=== PATIENT | female | born 1990 | race Hispanic/Latino ===

== ENCOUNTER 2017-12-31 18:00 | Observation (INO) | payer SELFPAY ==
[~2017-12-31] VITALS: Ht 157.5 cm; Wt 72.6 kg
[~2017-12-31 18:00] MED LIST: IRON18 MG PO; PRENATABS RX T1 EACH PO
[2017-12-31] MEDS ORDERED: SODIUM CHLORIDE 0.9% 1000ML 1,000 ML IV ONE (19:15)
[2017-12-31] MEDS ORDERED: SODIUM CHLORIDE 0.9% 1000ML 1,000 ML ONE (19:17)
[2017-12-31 19:23] LABS: BASOPHILS % 0.2 % (0.0-1.0); EOSINOPHILS % 0.1 % (0.0-6.0); HEMATOCRIT 35.1 % (34.2-44.1); HEMOGLOBIN 12.2 g/dL (12.0-16.0); LYMPHOCYTES # (AUTO) 1.8 (1.0-3.2); LYMPHOCYTES % 13.4 % (18.0-39.1); MEAN CORPUSCULAR HEMOGLOBIN 28.1 pg (28-32); MEAN CORPUSCULAR HGB CONC 34.8 g/dL (31-35); MEAN CORPUSCULAR VOLUME 80.9 fL (81-99); MONOCYTES # (AUTO) 0.9 (0.2-0.8); MONOCYTES % 6.4 % (4.4-11.3); NEUTROPHILS # (AUTO) 10.9 (2.1-6.9); NEUTROPHILS % 79.4 % (38.7-80.0); PLATELET COUNT 211 x10e3/uL (140-360); RED BLOOD COUNT 4.34 x10e6/uL (3.6-5.1); RED CELL DISTRIBUTION WIDTH 14.2 % (11.7-14.4)
[2017-12-31 19:35] LABS: ALANINE AMINOTRANSFERASE 21 IU/L (0-55); ALBUMIN 4.1 g/dL (3.5-5.0); ALBUMIN/GLOBULIN RATIO 1.5 (0.8-2.0); ALKALINE PHOSPHATASE 64 IU/L (40-150); ANION GAP 13.2 mmol/L (8-16); BLOOD UREA NITROGEN 9 mg/dL (7-26); BUN/CREATININE RATIO 11 (6-25); CALCIUM 9.3 mg/dL (8.4-10.2); CARBON DIOXIDE 21 mmol/L (22-29); CHLORIDE 110 mmol/L (98-107); CREATINE KINASE 513 IU/L (29-168); CREATININE, SERUM 0.85 mg/dL (0.57-1.11); EST GLOMERULAR FILTRATION RATE > 60 ML/MIN (60-); GLUCOSE 106 mg/dL (74-118); POTASSIUM 3.2 mmol/L (3.5-5.1); SODIUM 141 mmol/L (136-145)
[2017-12-31 19:57] LABS: FREE THYROXINE INDEX 2.1281 (1.4-3.8); THYROID STIMULATING HORMONE 0.616 uIU/mL (0.350-4.940)
[2017-12-31] MEDS ORDERED: ASPIRIN 81 MG CHEW TAB PO ONE ×3 (20:30→23:30)
[2017-12-31 20:47] LABS: BILIRUBIN,URINE NEGATIVE (NEGATIVE); CLARITY,URINE CLEAR (CLEAR); COLOR,URINE YELLOW (YELLOW); KETONES,URINE 1+ (NEGATIVE); LEUKOCYTE ESTERASE ,URINE NEGATIVE (NEGATIVE); NITRITE,URINE NEGATIVE (NEGATIVE); PROTEIN,URINE DIPSTICK NEGATIVE (NEGATIVE); URINE UROBILINOGEN 0.2 mg/dL (0.2 - 1)
[2017-12-31 21:06] LABS: BACTERIA,URINE MODERATE /HPF; EPITHELIAL CELLS,URINE MODERATE /LPF
--- NOTE | 2017-12-31 21:25 | Diagnostic Imaging Report ---
CHEST SINGLE (PORTABLE), 12/31/2017 7:15 PM Technique: CHEST SINGLE (PORTABLE) Comparison: None available. Clinical history: Syncope Findings: Unremarkable appearance of the heart, mediastinum, lungs and pleural spaces. Impression: 1. Lines/Tubes: None 2. No acute abnormality. Signed by: Dr Iman Orta MD on 12/31/2017 9:21 PM
--- NOTE | 2017-12-31 21:26 | Diagnostic Imaging Report ---
History: Syncope Comparison studies: None Technique: Axial images were obtained from the skull base to the vertex. Coronal and sagittal reconstructions obtained from the axial data. Findings: Scalp/skull: No abnormalities. No fractures, blastic or lytic lesions. Extra-axial spaces: No masses. No fluid collections. Brain sulci: Appropriate for age. Ventricles: Normal in size and configuration. No hydrocephalus. Parenchyma: No abnormal densities. No masses, hemorrhage, acute or chronic cortical vascular insults. Sellar/suprasellar region: No abnormalities Craniocervical junction: Patent foramen magnum. No Chiari one malformation. IMPRESSION: No abnormalities. Signed by: Dr. Jamaal Torres M.D. on 12/31/2017 9:22 PM
[2017-12-31] MEDS ORDERED: SODIUM CHLORIDE 0.9% 1000ML 1,000 ML IV SCH (23:30)
--- OUTSIDE RECORDS SUMMARY | 2017-12-31 23:34 | XMS REPORT ---
[facility] Address Unknown Phone Unavailable Care Team Providers Care Silk Snapper Name Role Phone MYRIAM MCNALLY Unavailable Unavailable Problems This patient has no known problems. Allergies, Adverse Reactions, Alerts This patient has no known allergies or adverse reactions. Medications This patient has no known medications. Results Test Description Test Time Test Comments Text Results Atomic Results Result Comments CHEST SINGLE (PORTABLE) [place] [address] Patient Name: MONA YOUNGER MR #: [id number] : 1990 Age/Sex: 27/F Req #: [id number] Adm Physician: Ordered by: ZEINAB WALLS MD Report #: [id number] Location: ER Room/Bed: ___ Procedure: [id number] DX/CHEST SINGLE (PORTABLE) Exam Date: 12/31/17 Exam Time: 2038 REPORT STATUS: Signed CHEST SINGLE (PORTABLE), 12/31/2017 7:15 PM Technique: CHEST SINGLE (PORTABLE) Comparison: None available. Clinical history: Syncope Findings: Unremarkable appearance of the heart, mediastinum, lungs and pleural spaces. Impression: 1. Lines/Tubes: None 2. No acute abnormality. Signed by : Dr Yodit Orta MD on 12/31/2017 9:21 PM Dictated By: YODIT ORTA MD 20 Transcribed By: ROSEMARY on 12/31/172120 COPY TO: ZEINAB WALLS MD CT BRAIN WO [place] [address] Patient Name: MONA YOUNGER MR #: [id number] : 1990 Age/Sex: 27/F Req # : [id number] Adm Physician: Ordered by: ZEINAB WALLS MD Report # : [id number] Location: ER Room/Bed: Procedure: [id number] CT/CT BRAIN WO Exam Date: Exam Time: REPORT STATUS: Signed History: Syncope Comparison studies: None Technique: Axial images were obtained from the skull base to the vertex. Coronal and sagittal reconstructions obtained from the axial data. Findings : Scalp/skull: No abnormalities. No fractures, blastic or lytic lesions. Extra-axial spaces: No masses. No fluid collections. Brain sulci: Appropriate for age. Ventricles: Normal in size and configuration. No hydrocephalus. Parenchyma: No abnormal densities. No masses, hemorrhage, acute or chronic cortical vascular insults. Sellar/ suprasellar region: No abnormalities Craniocervical junction: Patent foramen magnum. No Chiari one malformation. IMPRESSION: No abnormalities. Signed by: Dr. Jamaal Torres M.D. on 12/31/2017 9:22 PM Dictated By: JAMAAL TORRES MD, MD 21 Transcribed By: ROSEMARY on 12/31/172121 COPY TO: ZEINAB WALLS MD
[2017-12-31] MEDS: SODIUM CHLORIDE 0.9% 1000ML 1,000 ML IV SCH (23:36)
--- NOTE | 2018-01-01 00:32 | Consultation ---
DATE OF CONSULTATION: December 31, 2017 REASON FOR CONSULTATION: Syncope and elevated cardiac enzymes. HISTORY OF PRESENT ILLNESS: Ms. 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 She had intense physical training today including being in the sun for several hours. She tried to keep hydrated, but she felt dizzy during her training sessions. Following which, she was taken home by her and had 3 episodes of jimmy syncope. All while she was feeling the syncope was brief. She had no trauma, no seizures, no chest pain. She did describe some palpitations during the day. Her recorded heart rate was 120 beats a minute. PAST MEDICAL HISTORY: None. SOCIAL HISTORY: Patient does not smoke or drink. DRUG ALLERGIES: PENICILLIN. REVIEW OF SYSTEMS: Negative except as dictated in the history of present illness. PHYSICAL EXAMINATION VITALS: Afebrile. Heart rate 70. Blood pressure 120/77. O2 sat 100%. LUNGS: Clear to auscultation bilaterally. CARDIOVASCULAR: Regular rhythm. No murmurs or gallops. ABDOMEN: Soft. Bowel sounds adequate. EXTREMITIES: Pedal pulses are 2+. No carotid bruit. LAB: Potassium is 3.2, creatinine is 0.8. CK 5.3, CK-MB 8.1, troponin 0.5. TSH is normal. test is normal. Hemoglobin is normal. Chest x-ray, brain CT are normal. Echocardiogram is normal. ASSESSMENT: Heat exhaustion. RECOMMENDATIONS: Ms Goldsmith has trivial troponin and CPK elevation is probably related to her intense physical activity today along with dehydration and heat exhaustion. She should receive liberal intravenous fluids. Recheck cardiac enzymes to predict trend of same. If cardiac enzymes normal; hence, no further workup is needed. Her syncope is most likely vasovagal and related to dehydration, and intense physical exercise. Restrictions were discussed with the patient, as well as her . We will continue to follow closely. I thank, Dr. Burt, for this consultation. Job#: [id number]
[2018-01-01 03:47] LABS: CREATINE KINASE MB 21.5 ng/mL (0-5.0)
[2018-01-01] MEDS ORDERED: POTASSIUM CHLORIDE 20 MEQ TAB CR PO STA (04:27)
[2018-01-01] MEDS: SODIUM CHLORIDE 0.9% 1000ML 1,000 ML IV SCH ×4 (07:14→22:31)
--- NOTE | 2018-01-01 08:50 | History and Physical ---
PRIMARY CARE PHYSICIAN: None. CHIEF COMPLAINT: Syncope. HISTORY OF PRESENT ILLNESS: This is a 27-year-old woman with no significant medical issue, now having a syncopal episode at home. was called. When the ambulance arrived, the patient had another syncopal episode. The only symptom prior to the syncopal episode was some blurred vision, dizziness, and ringing in the ears. No chest pain. Currently, the patient is symptom-free and feels better. Has not had a syncopal episode in the past. She did have diarrhea after a syncopal episode occurred. PAST MEDICAL HISTORY: None. PAST SURGICAL HISTORY: None. ALLERGIES: PER ELECTRONIC MEDICAL RECORD. FAMILY HISTORY/SOCIAL HISTORY: The patient is . She has 3 children. Occasional alcohol. No cigarettes or illicits. MEDICATIONS: Per electronic medical record. REVIEW OF SYSTEMS: Denies any dizziness or chest pain. PHYSICAL EXAMINATION VITAL SIGNS: Have been reviewed. GENERAL: A tired-appearing woman resting in bed. HEENT: Anicteric. Pupils are responsive to light. No oral lesions. CARDIOVASCULAR: Normal S1 and S2. LUNGS: Moderate breath sounds. ABDOMEN: Soft, nontender, nondistended. EXTREMITIES: No edema or calf tenderness. NEUROLOGIC: Alert and oriented times 3, moving all extremities. SKIN: Dry. PSYCHIATRIC: Normal affect. LABS: Reviewed. MEDICATIONS: Reviewed. ASSESSMENT AND PLAN: This is a 27-year-old woman. 1. Syncope. EKG appears normal. Echocardiogram shows normal left ventricular ejection fraction. There are mild MR and TR. Cardiology has been consulted. Will continue aspirin 81 mg. Will obtain a lipid panel. Thyroid function is normal. CT scan of the brain was negative. 2. Acute rhabdomyolysis. Creatine kinase was 1500. Will rehydrate the patient. 3. Hypokalemia. Replace and recheck. Will also obtain a magnesium level and phosphorus level. 4. Metabolic acidosis. Will rehydrate. 5. Leukocytosis. Unclear etiology. Could just be marginalization. Urinalysis does show bacteria, but leukocyte esterase and nitrite are both negative. However, the patient did have a syncopal episode. We will treat it as symptomatic urinary tract infection. We will treat it with IV ceftriaxone and obtain cultures. The patient is allergic to penicillin. Therefore, we will use Levaquin. 6. Prophylaxis: Will use Lovenox and Pepcid. 7. Disposition: Monitor closely via telemetry. Job#: [id number] MH
[2018-01-01] MEDS: LEVOFLOXACIN 500MG/D5W 100ML 100 ML IV SCH (09:25)
[2018-01-01] MEDS: ASPIRIN 81 MG ENTERIC COATED PO SCH (09:25)
[2018-01-01] MEDS: FAMOTIDINE 20 MG/2 ML VIAL IV SCH ×2 (09:25→17:21)
[2018-01-01 09:55] LABS: CREATINE KINASE MB 19.4 ng/mL (0-5.0)
[2018-01-01 10:01] LABS: MAGNESIUM 1.7 MG/DL (1.3-2.1); PHOSPHORUS 2.4 MG/DL (2.3-4.7); POTASSIUM 3.7 mmol/L (3.5-5.1)
[2018-01-01 10:12] LABS: CHOL/HDL RATIO 3.5 (3.0-3.6)
[2018-01-01] MEDS ORDERED: MECLIZINE HCL 12.5 MG TAB PO PRN (11:00)
[2018-01-01] MEDS ORDERED: ACETAMINOPHEN 325 MG TAB PO PRN (12:45)
[2018-01-01 13:02] VITALS: BP 107/63
--- NOTE | 2018-01-01 13:17 | Progress Note ---
DATE: January 01, 2018 CARDIOLOGY PROGRESS NOTE SUBJECTIVE: Patient denies chest pain or shortness of breath. However, she reports she continues to have episodes of dizziness with moving her head or sitting up. OBJECTIVE VITAL SIGNS: Temperature 98.8 degrees, pulse 60, respiratory rate 20, blood pressure 110/73, oxygen saturation 99% on room air. GENERAL: Awake, alert, in no acute distress. LUNGS: Clear to auscultation bilaterally. No wheezes or crackles. CARDIOVASCULAR: Normal rate, regular rhythm. No murmur. Normal S1 and S2. ABDOMEN: Soft, nontender. EXTREMITIES: No edema. CARDIAC MEDICATIONS 1. Aspirin 81 mg p.o. daily. 2. Enoxaparin 40 mg subcutaneous daily. LABS: CK 1436, CK-MB 19.4, troponin 0.09. TELEMETRY: Normal sinus rhythm. IMPRESSION 1. Syncope. 2. Rhabdomyolysis. 3. Abnormal urinalysis. RECOMMENDATIONS: Continue IV fluids for rhabdomyolysis. Troponin elevation not consistent with myocardial infarction, likely related to intense physical activity and heat exhaustion yesterday. Syncope was likely due to dehydration. Echocardiogram was normal. Thank you for this consult. We will continue to follow. Job#: [id number] EV
[2018-01-01 13:24] VITALS: BP 107/63
[2018-01-01 15:27] VITALS: BP 128/71
[2018-01-01] MEDS ORDERED: ENOXAPARIN SOD INJ 40 MG/0.4 ML SYR SC SCH (17:00)
[2018-01-01 18:59] LABS: CREATINE KINASE MB 13.7 ng/mL (0-5.0)
[2018-01-01 20:00] VITALS: BP 112/56
[2018-01-02] VITALS: BP 102/56
[2018-01-02 04:00] VITALS: BP 107/61
[2018-01-02] MEDS: SODIUM CHLORIDE 0.9% 1000ML 1,000 ML IV SCH ×2 (04:29→10:23)
[2018-01-02 06:45] LABS: BASOPHILS % 0.8 % (0.0-1.0); EOSINOPHILS # (AUTO) 0.2 (0.0-0.4); EOSINOPHILS % 3.7 % (0.0-6.0); HEMATOCRIT 32.2 % (34.2-44.1); HEMOGLOBIN 10.4 g/dL (12.0-16.0); LYMPHOCYTES # (AUTO) 2.4 (1.0-3.2); LYMPHOCYTES % 45.8 % (18.0-39.1); MEAN CORPUSCULAR HEMOGLOBIN 27.7 pg (28-32); MEAN CORPUSCULAR HGB CONC 32.3 g/dL (31-35); MEAN CORPUSCULAR VOLUME 85.9 fL (81-99); MONOCYTES # (AUTO) 0.4 (0.2-0.8); MONOCYTES % 7.3 % (4.4-11.3); NEUTROPHILS # (AUTO) 2.2 (2.1-6.9); PLATELET COUNT 171 x10e3/uL (140-360); RED BLOOD COUNT 3.75 x10e6/uL (3.6-5.1); RED CELL DISTRIBUTION WIDTH 14.7 % (11.7-14.4)
[2018-01-02 07:17] LABS: ANION GAP 8.1 mmol/L (8-16); BLOOD UREA NITROGEN 5 mg/dL (7-26); BUN/CREATININE RATIO 7 (6-25); CALCIUM 8.4 mg/dL (8.4-10.2); CARBON DIOXIDE 24 mmol/L (22-29); CHLORIDE 113 mmol/L (98-107); CREATINE KINASE 740 IU/L (29-168); CREATININE, SERUM 0.71 mg/dL (0.57-1.11); EST GLOMERULAR FILTRATION RATE > 60 ML/MIN (60-); GLUCOSE 103 mg/dL (74-118); POTASSIUM 4.1 mmol/L (3.5-5.1); SODIUM 141 mmol/L (136-145)
[2018-01-02 07:44] VITALS: BP 133/63
--- NOTE | 2018-01-02 07:50 | Progress Note ---
DATE: January 02, 2018 TIME: 6 a.m. OVERNIGHT: Feeling fatigued. REVIEW OF SYSTEMS: Denies any dizziness or chest pain. PHYSICAL EXAMINATION VITAL SIGNS: Reviewed. GENERAL: A tired-appearing woman resting in bed. HEENT: Anicteric. CARDIOVASCULAR: Normal S1 and S2. LUNGS: Moderate breath sounds. ABDOMEN: Soft, nontender and nondistended. EXTREMITIES: No edema or calf tenderness. NEUROLOGICAL: Alert and oriented times 3. She moves all extremities. SKIN: Dry. PSYCHIATRIC: Normal affect. LABS: Reviewed. MEDICATIONS: Reviewed. ASSESSMENT: A 27-year-old woman with: 1. Syncope. 2. Acute rhabdomyolysis. 3. Hypokalemia. 4. Metabolic acidosis. 5. Leukocytosis. PLAN 1. Continue IV fluids. 2. Obtain creatinine kinase. 3. Echocardiogram normal. 4. Await clinical improvement. Job#: [id number] MT
[2018-01-02] MEDS: LEVOFLOXACIN 500MG/D5W 100ML 100 ML IV SCH (10:23)
[2018-01-02] MEDS: FAMOTIDINE 20 MG/2 ML VIAL IV SCH (10:23)
[2018-01-02] MEDS: ASPIRIN 81 MG ENTERIC COATED PO SCH (10:23)
[2018-01-02 11:37] VITALS: BP 125/61
[2018-01-02 14:46] VITALS: BP 125/61
[2018-01-02 15:35] VITALS: BP 113/58
--- NOTE | 2018-01-02 21:06 | Progress Note ---
DATE: January 02, 2018 SUBJECTIVE: The patient denies chest pain or shortness of breath. OBJECTIVE VITAL SIGNS: Temperature 98.6 degrees, pulse 62, respirations 20, blood pressure 125/61, oxygen saturation 98% on room air. GENERAL: Awake, alert, in no acute distress. LUNGS: Clear to auscultation bilaterally. No wheezes or crackles. CARDIOVASCULAR: Normal rate, regular rhythm. No murmur. Normal S1 and S2. ABDOMEN: Soft. Nontender. EXTREMITIES: No edema. CARDIAC MEDICATIONS 1. Aspirin 81 mg p.o. daily. 2. Enoxaparin 40 mg subcutaneous daily. LABS: WBC ed18, hemoglobin 10.4, hematocrit 32.2, platelets 171,000, sodium 141, potassium 4.1, chloride 113, CO2 of 24, BUN 5, creatinine 0.71. CK 740. TELEMETRY: Normal sinus rhythm. IMPRESSION 1. Syncope. 2. Rhabdomyolysis. 3. Abnormal urinalysis. RECOMMENDATIONS: IV fluids for rhabdomyolysis. Troponin elevation is not consistent with myocardial infarction, likely related to intense physical activity and heat exhaustion prior to presentation. Suspect syncope was likely due to dehydration. Echocardiogram was normal. No further cardiac evaluation is indicated at this time. Please have the patient follow up with us in the office in 2 weeks. Thank you for this consult. We will continue to follow. Job#: [id number]
== END 2018-01-02 16:37 | disposition home or self-care (01) ==
LOC: ER 18:00 → ERHOLD 23:32 → IMCU 01-01 12:45
PROVIDERS: ADMIT Internal Medicine; ATTEND Internal Medicine
DX: R55 Syncope and collapse (principal); R51 Headache; Z88.0 Allergy status to penicillin; E87.8 Other disorders of electrolyte and fluid balance, not elsewhere classified; E87.6 Hypokalemia; M62.82 Rhabdomyolysis; E87.2 Acidosis; D72.829 Elevated white blood cell count, unspecified; T67.5XXA Heat exhaustion, unspecified, initial encounter; E86.0 Dehydration
CPT/HCPCS: 36415 ×2; 70450; 71045; 80048; 80053; 80061; 81001; 82550 ×3; 82553 ×2; 83735; 84100; 84132; 84436; 84443; 84479; 84484 ×2; 84702; 85025 ×2; 87086; 93005 ×2; 93306; 97139; 99284; G0378 ×3; J1650; J1956 ×2; J7030 ×3

== ENCOUNTER 2019-01-08 14:09 | Observation (INO) | payer BC ==
[~2019-01-08] VITALS: Ht 157.5 cm; Wt 72.6 kg
[2019-01-08] MEDS ORDERED: TRAZODONE HCL50 MG PO (14:21)
[2019-01-08] MEDS ORDERED: VENLAFAXINE HC225 MG PO (14:21)
[2019-01-08] MEDS ORDERED: ALPRAZOLAM0.25 MG PO (14:21)
[2019-01-08] MEDS ORDERED: DEXTROAMP-AMPHE20 MG PO (14:21)
[2019-01-08] MEDS ORDERED: SODIUM CHLORIDE 0.9% 1000ML 1,000 ML IV SCH (14:30)
[2019-01-08 15:03] LABS: BASOPHILS % 0.6 % (0.0-1.0); EOSINOPHILS # (AUTO) 0.1 (0.0-0.4); EOSINOPHILS % 0.8 % (0.0-6.0); HEMATOCRIT 34.7 % (34.2-44.1); HEMOGLOBIN 11.5 g/dL (12.0-16.0); LYMPHOCYTES # (AUTO) 1.7 (1.0-3.2); LYMPHOCYTES % 26.8 % (18.0-39.1); MEAN CORPUSCULAR HEMOGLOBIN 26.7 pg (28-32); MEAN CORPUSCULAR HGB CONC 33.1 g/dL (31-35); MEAN CORPUSCULAR VOLUME 80.5 fL (81-99); MONOCYTES # (AUTO) 0.4 (0.2-0.8); MONOCYTES % 6.2 % (4.4-11.3); NEUTROPHILS # (AUTO) 4.1 (2.1-6.9); NEUTROPHILS % 65.3 % (38.7-80.0); PLATELET COUNT 228 x10e3/uL (140-360); RED BLOOD COUNT 4.31 x10e6/uL (3.6-5.1); RED CELL DISTRIBUTION WIDTH 14.1 % (11.7-14.4)
[2019-01-08 15:18] LABS: INR 0.93
[2019-01-08 15:19] LABS: PARTIAL THROMBOPLASTIN TIME 28.2 seconds (23.8-35.5)
[2019-01-08 15:24] LABS: ALANINE AMINOTRANSFERASE 16 IU/L (0-55); ALBUMIN 3.8 g/dL (3.5-5.0); ALBUMIN/GLOBULIN RATIO 1.2 (0.8-2.0); ALKALINE PHOSPHATASE 67 IU/L (40-150); ANION GAP 11.7 mmol/L (8-16); BLOOD UREA NITROGEN 8 mg/dL (7-26); BUN/CREATININE RATIO 10 (6-25); CALCIUM 9.4 mg/dL (8.4-10.2); CARBON DIOXIDE 25 mmol/L (22-29); CHLORIDE 106 mmol/L (98-107); CREATINE KINASE 95 IU/L (29-168); CREATININE, SERUM 0.78 mg/dL (0.57-1.11); EST GLOMERULAR FILTRATION RATE > 60 ML/MIN (60-); GLUCOSE 110 mg/dL (74-118); MAGNESIUM 2.1 MG/DL (1.3-2.1); POTASSIUM 3.7 mmol/L (3.5-5.1); SODIUM 139 mmol/L (136-145)
--- NOTE | 2019-01-08 15:56 | Diagnostic Imaging Report ---
EXAMINATION: CHEST 2 VIEWS INDICATION: Shortness of breath. COMPARISON: Chest radiograph 12/31/2017. FINDINGS: TUBES and LINES: None. LUNGS: Lungs are well inflated. Lungs are clear. There is no evidence of pneumonia or pulmonary edema. PLEURA: No pleural effusion or pneumothorax. HEART AND MEDIASTINUM: The cardiomediastinal silhouette is unremarkable. BONES AND SOFT TISSUES: No acute osseous lesion. Soft tissues are unremarkable. UPPER ABDOMEN: No free air under the diaphragm. IMPRESSION: No acute radiographic abnormality. Signed by: Dr. Sienna Uribe MD on 01/08/2019 3:53 PM
[2019-01-08] MEDS: SODIUM CHLORIDE 0.9% 1000ML 1,000 ML IV SCH (16:29)
[2019-01-08 18:38] VITALS: BP 122/72
[2019-01-08 19:00] VITALS: BP 133/80
--- NOTE | 2019-01-08 19:00 | NUR ---
patient is a new admit. patient is resting comfortably in bed. bed is in lowest position and call lewis is within reach. will continue to monitor patient.
[2019-01-08 20:00] VITALS: BP 133/80
[2019-01-09 00:19] VITALS: BP 116/73
[2019-01-09 04:20] VITALS: BP 123/58
--- NOTE | 2019-01-09 07:04 | NUR ---
report given to day nurse. patient is resting comfortably in bed. bed is in lowest position and call lewis is within reach
--- NOTE | 2019-01-09 07:59 | NUR ---
PCP Ethan Burt MD CHIEF COMPLAINT: tachycardia/lightheadedness. HISTORY OF PRESENT ILLNESS: This is a 28-year-old woman, with hx rhabdomyolysis, now with lightheadedness, found to have tachycardia and hypotension. Admitted for rehydration. PAST MEDICAL HISTORY: syncope, acute rhabdomyolysis, hypokalemia, dehydration, ADHD, depression. PAST SURGICAL HISTORY: None. ALLERGIES: Pen FAMILY HISTORY/SOCIAL HISTORY: The patient is . She has 3 children. Occasional alcohol. No cigarettes or illicits. MEDICATIONS: Per electronic medical record. REVIEW OF SYSTEMS: no f/c/s/N/V/D/[place]/cp/sob/leg pain/back pain/vision changes PHYSICAL EXAMINATION VITAL SIGNS: Have been reviewed. GENERAL: NAD HEENT: Anicteric. left subconjunctival hemorrhage; CARDIOVASCULAR: Normal S1 and S2. LUNGS: Moderate breath sounds. ABDOMEN: Soft, nontender, nondistended. EXTREMITIES: No edema or calf tenderness. NEUROLOGIC: Alert and oriented times 3, moving all extremities. SKIN: Dry. old bruises. PSYCHIATRIC: Normal affect. LABS: Reviewed. MEDICATIONS: Reviewed. ASSESSMENT AND PLAN: This is a 28-year-old woman. Dehydration Hypotension Tachycardia N. anemia- mild ADHD Depression PLAN rehydrate; bolus fluids restart home meds scd f/u afternoon labs; bolus 2 L; possible d/c later today; Ethan Burt MD, PhD.
--- NOTE | 2019-01-09 08:16 | NUR ---
Dr. Burt with pt at this time. New order for 2L bolus and urinalysis. Notify Dr. Burt when BP greater than 115.
[2019-01-09 08:22] VITALS: BP 111/66
--- NOTE | 2019-01-09 08:29 | NUR ---
First bolus initiated at this time. Pt responding well.
[2019-01-09] MEDS ORDERED: SODIUM CHLORIDE 0.9% 1000ML 1,000 ML IV SCH (08:30)
[2019-01-09] MEDS: SODIUM CHLORIDE 0.9% 1000ML 1,000 ML IV SCH ×4 (08:31→16:29)
[2019-01-09 09:21] LABS: BILIRUBIN,URINE NEGATIVE (NEGATIVE); CLARITY,URINE CLEAR (CLEAR); COLOR,URINE YELLOW (YELLOW); KETONES,URINE NEGATIVE (NEGATIVE); LEUKOCYTE ESTERASE ,URINE NEGATIVE (NEGATIVE); NITRITE,URINE NEGATIVE (NEGATIVE); PROTEIN,URINE DIPSTICK NEGATIVE (NEGATIVE); URINE UROBILINOGEN 0.2 mg/dL (0.2 - 1)
[2019-01-09 09:36] LABS: EPITHELIAL CELLS,URINE FEW /LPF
--- NOTE | 2019-01-09 09:40 | NUR ---
Second bolus administered at this time. Pt tolerating well. Will recheck BP after fluid administration.
[2019-01-09] MEDS ORDERED: ALPRAZOLAM 0.25 MG TAB PO PRN (09:45)
[2019-01-09] MEDS ORDERED: VENLAFAXINE HCL 75 MG TAB PO SCH (10:00)
[2019-01-09 12:19] VITALS: BP 131/71
--- NOTE | 2019-01-09 13:24 | NUR ---
Discharge summary ASSESSMENT AND PLAN: This is a 28-year-old woman. Dehydration Hypotension Tachycardia N. anemia- mild ADHD Depression PLAN rehydrate; bolus fluids restart home meds scd f/u afternoon labs; bolus 2 L; possible d/c later today; d/c home f/u pcp 1 week continue hydration with water or gatorade stable d/c>35mins Ethan Burt MD, PhD.
--- NOTE | 2019-01-09 16:51 | NUR ---
Informed Dr. Burt regarding HR of pt. Pt ambulated with nurse up and down hallway. HR at 77/78. ECG results of NSR 67bpm. Awaiting orders from Dr. Burt.
[2019-01-09] MEDS ORDERED: VENLAFAXINE HCL PO SCH (17:00)
[2019-01-09 17:03] VITALS: BP 116/73
[2019-01-09] MEDS ORDERED: PROPRANOLOL HCL10 MG PO (17:32)
[2019-01-09] MEDS ORDERED: TRAZODONE HCL 50 MG TAB PO PRN (21:00)
[2019-01-09] MEDS ORDERED: PROPRANOLOL HCL 10 MG TAB PO SCH (22:00)
[2019-01-10] MEDS ORDERED: D AMPHET PO SCH (09:00)
[2019-01-10] MEDS ORDERED: AMPHET ASP PO SCH (09:00)
[2019-01-10] MEDS ORDERED: AMPHET PO SCH (09:00)
== END 2019-01-09 17:44 | disposition home or self-care (01) ==
LOC: ER 14:12 → ERHOLD 16:11 → IMCU 18:22
PROVIDERS: ADMIT Internal Medicine; ATTEND Internal Medicine
DX: E86.0 Dehydration (principal); Z88.0 Allergy status to penicillin; F41.9 Anxiety disorder, unspecified; Z82.49 Family history of ischemic heart disease and other diseases of the circulatory system; I95.9 Hypotension, unspecified; R00.0 Tachycardia, unspecified; D64.9 Anemia, unspecified; F90.9 Attention-deficit hyperactivity disorder, unspecified type; F32.9 Major depressive disorder, single episode, unspecified
CPT/HCPCS: 36415; 71046; 80053; 81001; 82550; 82553; 83735; 84484; 85025; 85379; 85610; 85730; 93005 ×2; 99284; G0378 ×2; J7030 ×2